=== PATIENT | female | born 1940 | race Caucasian/White ===

== ENCOUNTER → 2016-07-06 | Outpatient (CLI) | payer OTHER ==
[2014-11-11 13:30] VITALS: BP 127/70
[~2016-07-06] MED LIST: LEVO500T38 PO
--- NOTE | 2016-07-06 15:58 | KCIC ---
PROCEDURE Bilateral digital mammogram with CAD HISTORY Routine screening TECHNIQUE Bilateral digital routine views were obtained with computer-aided detection. COMPARISON September 26, 2011 and September 27, 2015 FINDINGS Density B: Mixed fatty and fibroglandular tissue. There is no suspicious mass, calcifications or areas of architectural distortion. IMPRESSION No suspicious findings. [Recommend routine screening mammography in one year.] This study was interpreted with the benefit of Computerized Aided Detection (CAD). Mammography is not 100% sensitive in detecting breast cancer. Therefore, a self breast exam and a clinical breast exam are very important. A negative mammogram does not negate a clinically suspicious finding and should not result in a delay in biopsying a clinically suspicious abnormality. BI-RADS category 1: Negative. Electronically signed by: Saturnino Monroy MD (Jul 06, 2016 15:56:42)
== END | disposition home or self-care (01) ==
LOC: KCIC MAMMO 13:47
PROVIDERS: ATTEND Family Medicine
DX: Z12.31 Encounter for screening mammogram for malignant neoplasm of breast (principal)
CPT/HCPCS: G0202; 77067

== ENCOUNTER → 2016-07-27 | Outpatient (CLI) | payer OTHER ==
[2014-11-11 13:30] VITALS: BP 127/70
--- NOTE | 2016-07-27 16:50 | KCIC ---
PROCEDURE Three-view lumbar spine radiographs 07/27/2016 HISTORY Low back pain which radiates down the right hip for 2 weeks. FINDINGS AP and 2 lateral digital radiographs of the lumbar spine were obtained. Very mild S-shaped curvature of the thoracolumbar spine is noted. There is diffuse osteopenia of the visualized bony structures. Surgical clips are seen within the right upper quadrant of the abdomen consistent with a cholecystectomy. Degenerative changes are seen involving the lumbar disc spaces consisting of vertebral endplate sclerosis and minimal to mild anterior and posterior vertebral body osteophyte formation. Degenerative changes are seen involving the facet joints of the mid and lower lumbar spine. No fracture or subluxation is seen. IMPRESSION Degenerative changes are seen involving the lumbar spine as outlined above. No acute osseous abnormality is seen. Electronically signed by: Danny Kimbrough MD (Jul 27, 2016 16:49:10)
== END | disposition home or self-care (01) ==
LOC: KCIC 15:22
PROVIDERS: ATTEND Family Medicine
DX: M47.896 Other spondylosis, lumbar region (principal); M43.8X5 Other specified deforming dorsopathies, thoracolumbar region; M85.88 Other specified disorders of bone density and structure, other site; M25.78 Osteophyte, vertebrae
CPT/HCPCS: 72100

== ENCOUNTER → 2016-09-09 | Outpatient (CLI) | payer OTHER ==
[2014-11-11 13:30] VITALS: BP 127/70
--- NOTE | 2016-09-09 13:02 | RAD ---
Indication left neck swelling. Grayscale and color Doppler imaging was performed. Both submandibular glands are identified. The left submandibular gland is slightly larger than the right. Additionally there is increased vascularity to the left submandibular gland. The constellation of findings suggests possible inflammation associated with the left submandibular gland. There is a low-density mass in the left neck interposed between the submandibular gland and the caudal aspect of the parotid gland. It measures approximately 3.5 cm in greatest dimension and may represent a partially necrotic lymph node. (There appears to be a fatty hilum associated with the mass). No significant finding is seen in the right neck. If clinically warranted additional evaluation of the neck could be obtained with CT. Incidentally noted during the examination was a 3.4 cm solid mass associated with the right lobe of the thyroid. IMPRESSION: Slightly enlarged somewhat vascular left submandibular gland suggesting inflammation. 3.5 cm mass in the left neck may represent a partially necrotic lymph node. The etiology is not certain. If clinically warranted additional evaluation of the neck could be obtained with CT. Dominant nodule in the right lobe of the thyroid.
== END | disposition home or self-care (01) ==
LOC: US 11:52
PROVIDERS: ATTEND Family Medicine
DX: R22.1 Localized swelling, mass and lump, neck (principal); E04.1 Nontoxic single thyroid nodule
CPT/HCPCS: 76536

== ENCOUNTER → 2016-10-05 | Outpatient (CLI) | payer OTHER ==
[2014-11-11 13:30] VITALS: BP 127/70
[~2016-10-05] MED LIST changes: +CONTRAST GIVEN MC PRN; +IOHEXOL 300 MG/ML 100ML VIAL. IV ONE; -LEVO500T38 PO; +LEVO500T59 PO
--- NOTE | 2016-10-05 14:11 | KCIC ---
CT SOFT TISSUE NECK W/CONTRAST dated 10/05/2016 12:00 AM Indication: Left-sided neck mass for one month Comparison: No comparison is available. Technique: After bolus of intravenous contrast, CT imaging was performed of the neck. Multiplanar reconstruction images are submitted. One or more of the following individualized dose reduction techniques were utilized for this examination: 1. Automated exposure control 2. Adjustment of the mA and/or kV according to patient size 3. Use of iterative reconstruction technique. Contrast: 95 cc Omnipaque 300 Findings: Marker was placed at site of palpable concern of the left lateral neck, located inferior to the tail of the left parotid gland. Underlying the marker, there is a marginated 2.4 cm AP by 1.3 cm transverse by 3.1 cm centimeter focus of somewhat ovoid density, density measurements of 25 Hounsfield units. This is located lateral to the left sternocleidomastoid muscle and anterior to the left external jugular vein. There appears to be associated enhancing septation or enhancement at the medial aspect. No other neck mass is identified. The right thyroid gland is enlarged, some scattered foci of hypodensity and calcification. There is emphysema of the visualized lung apices. There is advanced degenerative disc disease at C4-5 and to lesser degree at C5-C6, spondylosis at the same levels. There is likely more focal central disc protrusion at C3-4 with likely mild/moderate spinal stenosis, also spinal stenosis at C4-5 with estimated central canal on the order of 6 mm. There is a somewhat lesser degree of narrowing at C5-C6. There are some scattered foci relative lucency of the cervical vertebral bodies most notable posteriorly at C2 although there is generalized mild demineralization present. The mastoid air cells are aerated. Paranasal sinuses are mostly aerated, mild mucosal thickening at the floor of the left maxillary sinus. No asymmetry is identified of the true or false cords or epiglottis. There is preservation of the parapharyngeal fat planes. There is a round approximately 0.9 cm focus of pronounced enhancement of the left cerebellopontine angle, does not extend to the dural surface. IMPRESSION: 1. There is a smoothly marginated, hypodense mass underlying the marker of the left lateral neck, located just inferior to the tail of the left parotid gland. This could be due to component of complex cyst although there appears to be an associated enhancing septation. Given the fairly homogeneous relatively lower density, sequela of a variant of somewhat complex, first branchial cleft cyst would be a consideration. Suppurative jaycob mass seems less likely in the absence of significant peripheral enhancement although not excluded given patient's age and history. 2. There is a round 0.9 cm focus of prominent enhancement of the left cerebellopontine angle, degree of enhancement and location concerning for aneurysm such as arising from left PICA. 3. There is degenerative disc disease and spondylosis greatest at C4-5 and C5-C6. There is likely likely spinal stenosis to 6 mm at C3-4 and to a lesser degree at C4-5. There are some scattered foci of relative lucency of the cervical spine greatest at C2, cannot exclude marrow replacing lesions although could be related to demineralization. 4. There is right thyromegaly with interspersed calcification and nodularity. Electronically signed by: Fab Butcher MD (10/05/2016 2:08 PM)
== END | disposition home or self-care (01) ==
LOC: KCIC CT 08:39
PROVIDERS: ATTEND Otolaryngology
DX: M47.892 Other spondylosis, cervical region (principal); M50.321 Other cervical disc degeneration at C4-C5 level; M50.322 Other cervical disc degeneration at C5-C6 level; E01.0 Iodine-deficiency related diffuse (endemic) goiter
CPT/HCPCS: 70491; 82565; Q9967

== ENCOUNTER → 2016-10-26 | Outpatient (CLI) | payer OTHER ==
[2014-11-11 13:30] VITALS: BP 127/70
[~2016-10-26] VITALS: Ht 149.9 cm; Wt 52.6 kg
[~2016-10-26] MED LIST changes: -CONTRAST GIVEN MC PRN; -IOHEXOL 300 MG/ML 100ML VIAL. IV ONE; +METH4TAB6 PO
--- NOTE | 2016-10-26 10:30 | RAD ---
Thyroid ultrasound, 10/26/2016: History: Thyroid nodule The right lobe of the gland measures 4.2 x 2.0 x 2.2 cm while the left lobe of the gland measures 2.9 x 1.2 x 0.8 cm. There is a 3.9 x 1.6 x 1.7 cm oval-shaped mass in the right lobe replacing much of the normal thyroid tissue. It is a solid mass with moderate vascularity. It is wider than tall. It contains foci of increased echogenicity. The recent CT study demonstrated a coarse calcification within this process. The left lobe of the gland is unremarkable. Again noted is a complex nodule in the upper left neck laterally. This lies just below the angle of the mandible. It measures 4.0 x 2.4 x 1.5 cm. It demonstrates cystic-appearing components as well as an enhancing septae. This was also evident on the neck ultrasound of 09/09/2016. Diagnostic considerations include a necrotic lymph node or a branchial cleft cyst. IMPRESSION: 1. Moderate sized right thyroid mass containing calcifications. Ultrasound-guided biopsy is planned. 2. Normal left lobe of the thyroid gland. 3. Complex left upper neck mass, unchanged since 09/09/2016.
--- NOTE | 2016-10-26 10:38 | RAD ---
Ultrasound-guided right thyroid biopsy, 10/26/2016: History: Thyroid nodule Under local anesthesia, aseptic conditions and sonographic guidance a 25-gauge needle was passed into the right thyroid nodule via an anteromedial approach. 4 separate aspirates were obtained. The materials were sent to pathology for evaluation with the results pending. Hemostasis was obtained at the end of the procedure. The patient tolerated the procedure well and left the department in good condition.
--- NOTE | 2016-10-26 10:48 | RAD ---
Ultrasound-guided left neck mass aspiration, 10/26/2016: Previous studies demonstrated a complex septated mass in the left upper neck. Under local anesthesia, aseptic conditions and sonographic guidance an 18-gauge needle was passed into this nodule via an anterior approach. Approximately 5 cc of turbid fluid was easily aspirated. The materials were sent to the lab for appropriate studies. Hemostasis was then obtained. The patient tolerated the procedure well and left the department in good condition.
--- NOTE | 2016-10-28 10:06 | PATHOLOGY ---
CYTOPATHOLOGY REPORT CLINICAL HISTORY: A. 3.4 cm right thyroid nodule B. 3.6 cm left neck mass SPECIMEN(S) RECEIVED: A.Fine needle aspiration, Right thyroid B.Needle aspiration, Left neck FINAL DIAGNOSIS: A. Fine needle aspiration, right thyroid: - Follicular lesion of undetermined significance. 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 - See comment. B. Needle aspiration, left neck: - No malignant cells identified. - Acute and chronic inflammatory cells present in a background of debris. (SHA:sheila; 10/27/2016) COMMENT: A. There are few atypical cells with Hurthle cell changes. These findings can be seen in Hurthle cell lesions like Hurthle cell adenomatoid nodule; however, they can also be seen in Hurthle cell neoplasm. Suggest clinical correlation. PATHOLOGIST: Adriel Rai M.D. REPORT ELECTRONICALLY SIGNED BY: Adriel Rai M.D. DATE/TIME: 10/28/2016 10:05 GROSS PATHOLOGY: A. Fine needle aspiration, Right thyroid: The specimen is labeled "Yuliet Quiles" and consists of three air dried slides, three fixed slides. Thirty mL of clear red fluid in fixative from the needle rinse is also submitted and one ThinPrep slide was prepared from this material. One RNA retain vial has been received. B. Needle aspiration, Left neck: The specimen is unfixed, labeled "Yuliet Quiles". Less than one mL of cloudy yellow fluid is submitted and one ThinPrep slide was prepared from this material. (mm 10.26.2016) LINE INSTALLER(S): HO Valle([facility] INITIAL CPT CODE(S): A; 34767 B; 55582 Professional services performed by [facility] at [address] [id number] [place] [address] Technical services performed by [facility] at [address] [place] [address], [address], [place] [address]. PATIENT: YULIET QUILES /AGE: 610/02/1940 (Age: 76) SEX: F PATIENT #: [id number] ALT CASE #: SPECIMEN COLLECTION DATE: 10/26/2016 SPECIMEN RECEIVED DATE: 10/26/[address] [facility] [address] [place] [address], [address] [place] [address] PHONE: [phone] DIRECTOR: Magdaleno Rangel M.D. * * * END OF REPORT * * *
== END | disposition home or self-care (01) ==
LOC: US 07:10
PROVIDERS: ATTEND Otolaryngology
DX: E04.1 Nontoxic single thyroid nodule (principal); R22.1 Localized swelling, mass and lump, neck
CPT/HCPCS: 10160; 60300; 76536; 76942; 87205; 88184; 88185

== ENCOUNTER → 2016-12-06 | Outpatient (CLI) | payer OTHER ==
[2014-11-11 13:30] VITALS: BP 127/70
--- NOTE | 2016-12-06 16:03 | RAD ---
Venous Doppler of the lower extremities Indication: Chronic Bilateral pain and swelling. Technique: Grayscale, color Doppler and spectral waveform ultrasound images of the bilateral lower extremity veins obtained. Comparison: Prior study from 11/16/2014. Findings: Right lower extremity: The interrogated right lower extremity veins are compressible and demonstrate normal respiratory variation with response to augmentation. There is a bilobed 3.0 x 0.9 x 2.4 cm cyst in the popliteal fossa. Left lower extremity:The interrogated left lower extremity veins are compressible and demonstrate normal respiratory variation with response to augmentation. Impression: 1. No sonographic evidence of DVT within the interrogated lower extremities veins. 2. 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
== END | disposition home or self-care (01) ==
LOC: US 11:52
PROVIDERS: ATTEND Nurse Practitioner
DX: M79.662 Pain in left lower leg (principal); M79.661 Pain in right lower leg; M79.89 Other specified soft tissue disorders; M71.21 Synovial cyst of popliteal space [Baker], right knee
CPT/HCPCS: 93970

== ENCOUNTER → 2017-03-21 | Outpatient (CLI) | payer OTHER ==
[2014-11-11 13:30] VITALS: BP 127/70
--- NOTE | 2017-03-21 16:35 | KCIC ---
Ultrasound of the left inguinal region 03/21/2017 CLINICAL HISTORY: Left groin swelling and lump. The patient had recent attempted endovascular treatment of an apparent intracranial aneurysm using a left femoral approach. TECHNIQUE: A real-time ultrasound examination of the left inguinal region in the area of the patient's swelling was performed. Multiple images were obtained. FINDINGS: An oval-shaped hypoechoic structure is seen within the subcutaneous fat of the left inguinal region which measures 3.8 cm in greatest diameter. This is 1 cm deep to the skin surface. It corresponds to the patient's palpable abnormality. No color flow is seen within this structure. This is felt to most likely represent a hematoma given the patient's history. No additional abnormality is seen. IMPRESSION: 3.8 cm probable hematoma is seen within the left inguinal region as outlined above. Electronically signed by: Danny Kimbrough MD (03/21/2017 4:32 PM) [id number]
== END | disposition home or self-care (01) ==
LOC: KCIC US 13:35
PROVIDERS: ATTEND Family Medicine
DX: I67.1 Cerebral aneurysm, nonruptured (principal); R19.09 Other intra-abdominal and pelvic swelling, mass and lump
CPT/HCPCS: 76881

== ENCOUNTER → 2017-07-07 | Outpatient (CLI) | payer OTHER | END | disposition home or self-care (01) | LOC: KCIC MAMMO 09:51 | DX: Z12.31 Encounter for screening mammogram for malignant neoplasm of breast (principal) | CPT/HCPCS: 77067 ==